=== PATIENT | male | born 1945 | race Caucasian/White ===

== ENCOUNTER → 2017-06-22 | Outpatient (CLI) | payer BC, OTHER ==
[~2017-06-22] MED LIST: CENTRUM SILVER1 EAC2 PO; FOLIC ACID0.8 MG PO; MAGNESIUM400 M1 PO; MOBIC15 MG PO; SIMVASTATIN40 MG PO; TERAZOSIN HCL5 MG PO; ULTRAM 50MG TAB50 MG PO; VITAMIN D3400 UNIT PO; VITAMIN E1000 UNI2 PO; VITAMINC500 PO; ZINC50 M1 PO
--- NOTE | 2017-07-11 08:16 | PAINCON ---
[address] [address] PAIN MANAGEMENT CONSULTATION Name: MYKE WHIPPLE [facility] [id number] Admission: 06/22/17 Attend Phys: Stepan Siegel MD Discharge: Date of : 43 Report #: [id number] THIS REPORT FOR: //name// CC: Stepan Correa MD DATE OF SERVICE: 06/22/2017 CHIEF COMPLAINT: Pain down the right leg. HISTORY OF PRESENT ILLNESS: The patient is a 72-year-old gentleman, who has been referred to the Pain Clinic for evaluation. He has been having pain in the back for a number of years. Pain is worse on the right side as compared to the left. He described it as pain involving the lower buttocks with numbness, tingling, and an electric shock-like sensation, which he has been experiencing. Occasionally, he has some numbness in the right leg down to the level of knee. He has tried physical therapy, but he does not feel that this has been significantly helpful. Chiropractic was tried, but no long-term benefit. He rates his pain as a 3/10 at this juncture. He has been using naproxen to help control the pain. Notes that walking, activities of daily living as well as leaning back to look upward can be problematic. Over the past 3 months, things have gotten progressively more problematic especially when he is walking, worse is the pain when he lifts his hands over his head. Notes that rest sometimes improves the pain. He describes it as significantly problematic in the "small of his back." He described it as continuous, constant and throbbing, often times to about a 5/10. ALLERGIES: No known drug allergies. CURRENT MEDICATIONS: Ascorbic acid 500 mg daily, vitamin D3, folic acid 0.8 mg, magnesium oxide 400 mg, Centrum Silver Ultra for men, terazosin 5 mg at bedtime, vitamin E mixed with zinc 50 mg. FAMILY HISTORY: Mother at age 93, type 2 diabetes. Father at 93, colon cancer. 2 sisters and 2 sons are healthy. Family history of colonic polyps. PAST MEDICAL HISTORY: Benign prostatic hypertrophy, gastroesophageal reflux, anxiety, abdominal aortic aneurysm, dyslipidemia, bilateral carpal tunnel, hypertension, arthralgia, bilateral carpal tunnel syndrome. PAST SURGICAL HISTORY: Sinus surgery in 1975, ingrown toenail in 1968, colonoscopy, EGD, eye surgery for glaucoma in 2016. 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 [address] PAIN MANAGEMENT CONSULTATION Name: TOMAS WHIPPLEE Daisy Room: [facility]#: [id number] Admission: 06/22/17 Attend Phys: Stepan Siegel MD Discharge: Date of : 43 Report #: [id number] working at this juncture. MARITAL STATUS: He is . REVIEW OF SYSTEMS: Questionnaire 14-point review indicates generally good health, wears glasses, back pain, numbness and tingling sensation down the lower extremities. LABORATORY AND IMAGING DATA: MRI of the lumbar spine dated 09/09/2001 revealed: 1. L2-L3 levels reveals bulging, desiccated disk, accompanied by annular rent. Although the bulging disk only mildly effaces the ventral thecal sac, the annular rent might contribute to local low back pain. 2. L3-L4 level also demonstrates a bulging desiccation of the disk with an annular rent. In addition, a left foraminal small herniated nucleus pulposus is seen resulting in moderate leftward L3 foraminal encroachment. Mild facet arthropathy contributes to the foraminal encroachment. 3. L4-L5 level reveals a bulging desiccated disk, accompanied by a small left foraminal disk protrusion, chronic in character, with associated endplate spurring. Facet arthropathy at L4-L5 contributes to moderate foraminal encroachment. 4. L5-S1 level reveals a bulging, desiccated disks. Slight anterolisthesis is seen, grade 1, in the supine position. Facet arthropathy contributes to moderate L5 foraminal encroachment. 5. Height of vertebral body is maintained. Normal pathology marrow infiltration. No paraspinous soft tissue mass. The upper abdominal aorta is mildly ectatic. PAIN IMPACT SCORE: 1. The patient has some pain and discomfort consistent with arthritic changes in the low back area. 2. Height 5 feet 7 inches, weight 180 pounds, BMI is 28. 3. Vital signs: Blood pressure 140/93, heart rate 57, respiratory rate 16, room air saturation 97%, temperature 97.9. 4. The patient rates his pain at a 3/10. 5. The patient has not fallen in the last 3 months. 6. Hypertension: The patient is being treated for hypertension. 7. Blood thinner: The patient is not on a blood thinning agent. 8. Opioids for greater than 6 weeks: The patient has not been on opioid therapy for greater than 6 weeks. 7. Risk assessment tool. 8. Functional assessment tool. 9. Recreational drug use: The patient denies use of recreational drugs 10. Tobacco use: The patient has stopped use of tobacco on 2 occasions. 11. Alcohol frequency: The patient does not drink alcoholic beverages on a regular basis. [address] [address] PAIN MANAGEMENT CONSULTATION Name: TOMAS WHIPPLEE Daisy Room: [facility]#: [id number] Admission: 06/22/17 Attend Phys: Stepan Siegel MD Discharge: Date of : 43 Report #: [id number] PHYSICAL EXAMINATION: GENERAL: The patient is a well-developed white male, appears his stated age. He is alert and oriented x 3. Affect is appropriate. Speech is fluent. HEENT: Normocephalic, atraumatic. Extraocular eye muscles intact. Sclerae is nonicteric. Hearing is within normal limits. Mucous membranes are moist. NECK: Without adenopathy, JVD or bruits. HEART: Regular rate. ABDOMEN: Nontender. EXTREMITIES: Upper extremity muscle strength is judged to be 5/5 for the major muscle groups. +1 biceps tendon reflexes bilaterally. Respiratory Technician strength is 5/5. MUSCULOSKELETAL: Without significant scoliosis, kyphosis or lordosis. IMPRESSION: 1. Lumbar radiculopathy involving the low back area with numbness and tingling radiating down into the right buttocks with some electrical sensation and sensory changes involving the right leg to the level of the knee. 2. History of prostatic hypertrophy. 3. Gastroesophageal reflux. 4. Anxiety. 5. Abdominal aortic aneurysm. 6. Dyslipidemia. 7. Bilateral carpal tunnel. 8. Hypertension. 9. Arthralgia. RECOMMENDATIONS: We discussed treatment options with the patient. He is having pain and discomfort in the lower portion of his back. He is experiencing pain which is radiating down into the posterior portion of his right leg with numbness, tingling and weakness involving the affected area. We have discussed the possibility of an epidural steroid injection. Risks and benefits of an epidural steroid injection were discussed. Possible complications of the procedure were reviewed. A model was used to indicate the area of probable pathology. The patient states that he understands. We will consider an epidural steroid injection. <ELECTRONICALLY SIGNED> By: Stepan Siegel MD 07/11/17 0816 [id number]. Steven Siegel MD /nt
== END ==
LOC: M.PC 02:25
DX: I10 Essential (primary) hypertension (principal); E78.5 Hyperlipidemia, unspecified; M54.16 Radiculopathy, lumbar region; K21.9 Gastro-esophageal reflux disease without esophagitis; F41.9 Anxiety disorder, unspecified; I71.4 Abdominal aortic aneurysm, without rupture; M79.651 Pain in right thigh

== ENCOUNTER → 2017-06-29 | Outpatient (CLI) | payer BC, OTHER ==
--- NOTE | 2017-07-11 08:16 | PAINCON ---
[address] [address] PAIN MANAGEMENT CONSULTATION Name: MYKE WHIPPLE [facility] [id number] Admission: 06/29/17 Attend Phys: Stepan Siegel MD Discharge: Date of : 41 Report #: [id number] THIS REPORT FOR: //name// CC: Stepan Correa MD DATE OF SERVICE: 06/29/2017 FOLLOWUP COMPLAINT: Here for an epidural steroid injection because of pain in the right leg. FOLLOWUP HISTORY: The patient is a 72-year-old gentleman who has been seen in the pain clinic because of pain and discomfort. He has had some pain in his back for a number of years. The pain has gotten worse and radiated down to the right side of his leg and worsened on the left. He described his pain involving the lower buttocks with numbness, tingling, and electrical shock-like sensation, which he has been experiencing. He occasionally has some numbness on the right leg down to the level of knee. He has tried physical therapy, does not feel that had provided any terminal operations supervisor benefit. He has tried chiropractic treatment with no terminal operations supervisor benefit. He has used nonsteroidal anti-inflammatory medication such as Naprosyn. He notes that activities such as walking, leaning forward, and looking upward can be problematic. Over the last 3 months things have gotten significantly worse and more problem and progressively more uncomfortable with activities. Notes that sometimes pain improves when he rests. ALLERGIES: No known drug allergies. CURRENT MEDICATIONS: Ascorbic acid 500 mg daily, vitamin D3, folic acid 0.8 mg, magnesium oxide 400 mg, Centrum Silver Ultra for Men, prazosin 5 mg at bedtime, vitamin E mixed with zinc 50 mg. PAIN CLINIC IMPACT SCORE: 1. The patient has some pain and discomfort consistent with arthritic changes in his low back area. 2. Height 5 feet 5 inches, weight 180 pounds, BMI is 28. 3. Vital signs: Blood pressure 129/68, heart rate 60, respiratory rate 16, room air saturation 97%, temperature 97.8. 4. Pain score. The patient rates his pain as 2/10 at this juncture. 5. The patient has not fallen in the last 3 months. 6. Hypertension. The patient is being treated for hypertension. 7. Blood thinner. The patient is not on a blood thinning agent. 8. Opioid greater than 6-week. The patient has not been on opioid script for greater than 6 weeks. 9. [place] [address] PAIN MANAGEMENT CONSULTATION Name: TOMAS WHIPPLEE Daisy Room: [facility]#: [id number] Admission: 06/29/17 Attend Phys: Stepan Siegel MD Discharge: Date of : 43 Report #: [id number] 10. Functional assessment tool. 11. Recreational drug use. The patient denies any use of recreational drugs. 12. Tobacco: The patient has stopped use of tobacco on 2 occasions. 13. Alcohol frequency. The patient denies drinking alcoholic beverages on a regular basis. PHYSICAL EXAMINATION: GENERAL: The patient is a well-developed white male. He appears his stated age. He is alert and oriented x 3. AFFECT: His affect is appropriate. SPEECH: Fluent. HEENT: Normocephalic, atraumatic. Extraocular eye muscles intact. Sclerae is nonicteric Hearing is within normal limits. Mucous membranes are moist. NECK: Without adenopathy, JVD, or bruits. Good range of motion. HEART: Regular rate, normal S1, S2. ABDOMEN: Nontender. LUNGS: Clear to auscultation without rhonchi or rales. EXTREMITY: Upper extremity muscle strength is judged to be 5/5 for the major muscle groups with +1 biceps tendon, reactivity bilaterally. Hall Supervisor strength 5+/5. MUSCULOSKELETAL: Without significant scoliosis, kyphosis, or lordosis. Lumbar area involving the low back area with some numbness and tingling radiating down the right buttocks with some sensation of electrical shock. Positive straight leg raise. IMPRESSION: 1. Lumbar radiculopathy involving low back area with numbness and tingling radiating down to the right buttocks. 2. History of prostatic hypertrophy. 3. Gastroesophageal reflux. 4. Anxiety. 5. Aortic aneurysm history. 6. Dyslipidemia. 7. Bilateral carpal tunnel syndrome. 8. Hypertension. 9. Arthralgias. RECOMMENDATIONS: We discussed treatment options with the patient. Risks and benefits of an epidural steroid injection were again reviewed. Possible complication of the procedure were discussed. The patient elects to proceed. PROCEDURE NOTE: The patient was assisted in moving on to the examination table. He was placed in the prone position. His back was sterilely prepped with a Betadine solution and allowed to dry the L4-L5/L5-S1 area. Fluoroscopy using the anterior, posterior as well as the lateral approach was used to visualize the appropriate target area. This area was then infiltrated with 0.25% [address] [address] PAIN MANAGEMENT CONSULTATION Name: MYKE WHIPPLE Room: [facility] Edward#: [id number] Admission: 06/29/17 Attend Phys: Stepan Siegel MD Discharge: Date of : 43 Report #: [id number] bupivacaine. A 17-gauge Tuohy with loss of resistance technique was used to gain access to the epidural space. There was no CSF, heme or paresthesia. A total of 40 mg triamcinolone and 80 mg Depo-Medrol was injected. The patient tolerated the procedure well. There were no complications. He remained in the pain clinic for an appropriate amount of time. He will follow up in the future as needed. We would like to thank you for letting us participate in his care. We hope he continues to improve. <ELECTRONICALLY SIGNED> By: Stepan Siegel MD 07/11/17 0816 1745 [address]. Steven Siegel MD /ADÁN
== END | disposition home or self-care (01) ==
LOC: M.PC 01:28
DX: M54.16 Radiculopathy, lumbar region (principal); G89.29 Other chronic pain; I10 Essential (primary) hypertension; M19.90 Unspecified osteoarthritis, unspecified site; E78.5 Hyperlipidemia, unspecified; F41.9 Anxiety disorder, unspecified; K21.9 Gastro-esophageal reflux disease without esophagitis; Z86.79 Personal history of other diseases of the circulatory system; Z87.438 Personal history of other diseases of male genital organs

== ENCOUNTER → 2017-08-03 | Outpatient (CLI) | payer BC, OTHER ==
--- NOTE | 2017-08-30 13:42 | PAINCON ---
[address] [address] PAIN MANAGEMENT CONSULTATION Name: MYKE WHIPPLE Room: [facility]#: [id number] Admission: 08/03/17 Attend Phys: Stepan Siegel MD Discharge: Date of : 43 Report #: [id number] THIS REPORT FOR: //name// CC: Stepan Correa MD DATE OF SERVICE: 08/03/2017 FOLLOWUP COMPLAINT: The pain is better overall, but still having some numbness down the right leg and a hitch in the right hip. Here for another injection. FOLLOWUP HISTORY: The patient is a 72-year-old gentleman who has been seen in the pain clinic because of pain and discomfort. The pain involves his low back. It has been problematic for a number of years. He has noticed that after the last epidural steroid injection, he has noted some improvement. The pain involves his lower back and the buttocks area. Pain radiates down to his leg with a tingling sensation and an electrical shock-like sensation. He notes also some numbness in his right leg to the level of his knee. As you recall, he has tried physical therapy. Does not feel that it had provided any long-term benefit. He has also undergone chiropractic treatment that was helpful while he was undergoing it, but still had residual pain and discomfort. Nonsteroidal anti-inflammatory medications such as Naprosyn has been used. He notes that activities such as walking, leaning forward, bending and looking upward can be problematic. He notes that his pain has gotten worse over the last 3 months. It improved after the last epidural steroid injection. Therefore, he has returned to the pain clinic with hopes of additional benefit from another injection. ALLERGIES: No known drug allergies. CURRENT MEDICATIONS: Ascorbic acid 500 mg, vitamin D3, folic acid is 0.8 mg, magnesium oxide 400 mg, Centrum Silver Ultra for Men, prazosin 5 mg at bedtime, vitamin E mixed with zinc 50 mg. PAIN CLINIC ASSESSMENT: 1. The patient has some pain and discomfort with arthritic changes in his low back area. 2. Height 5 feet 5 inches, weight 176 pounds, BMI is 27. 3. Vital signs: Blood pressure 129/75, heart rate 66, respiratory rate 16, room air saturation 97%, temperature 98.0. 4. Pain score: The patient rates his pain score as a 2 at this juncture. 5. The patient has not fallen in the last 3 months. 6. Hypertension: The patient is being treated for hypertension. 7. Blood thinner: The patient is not on a blood thinning agent. 8. Opioid greater than 6 weeks. The patient is [place] [address] PAIN MANAGEMENT CONSULTATION Name: MYKE WHIPPLE Room: [facility]#: [id number] Admission: 08/03/17 Attend Phys: Stepan Siegel MD Discharge: Date of : 43 Report #: [id number] use. 9. Risk assessment tool. 10. Functional assessment tool. 11. Recreational drug use: The patient denies use of recreational drugs. 12. Tobacco: The patient stopped using tobacco on 2 occasions. 13. Alcohol frequency: The patient denies use of alcoholic beverages on a regular basis. PHYSICAL EXAMINATION: GENERAL: The patient is a well-developed white male. He appears his stated age. He is alert and oriented x 3. Affect, the patient's affect is appropriate. Speech is fluent. HEENT: Normocephalic, atraumatic. Extraocular eye muscles intact. Sclerae is nonicteric. Hearing is within normal limits. Mucous membrane is moist. NECK: Without adenopathy, JVD or bruits. Good range of motion. HEART: Regular rate, normal S1, S2. LUNGS: Clear to auscultation without rhonchi or rales. ABDOMEN: Nontender. EXTREMITIES: Upper extremities musculature judged to be 5/5 for the major muscle groups with a +1 biceps tendon reactivity bilaterally. Brake Machine Operator strength 5/5. Lower extremity musculature 5/5 with pain radiating down the low back area with some discomfort in the L5-S1 and paraspinous area and the patient with pain in the right buttocks with some sensation that he describes as electrical shocks. Positive straight leg raise on the right. IMPRESSION: 1. Lumbar radiculopathy involving the right leg with pain, numbness and tingling down to the buttocks area. 2. History of prostatic hypertrophy. 3. Gastroesophageal reflux. 4. Anxiety. 5. Aortic aneurysm history. 6. Dyslipidemia. 7. Bilateral carpal tunnel syndrome. 8. Hypertension. 9. Arthralgias. RECOMMENDATIONS: We discussed treatment options with the patient. He underwent an epidural steroid injection in the L5-S1 area at the last visit. He returns today indicating that he has noted some benefit. At this juncture, he would like to proceed with another injection in the low back area in the L5 distribution given that he has noted benefit from the last. He had no complications. PROCEDURE NOTE: The patient was taken to the room. He was then assisted in getting on the examination table. His back was sterilely prepped with a [facility] [address] [place] [address] PAIN MANAGEMENT CONSULTATION Name: MYKE WHIPPLE Room: [facility]#: [id number] Admission: 08/03/17 Attend Phys: Stepan Siegel MD Discharge: Date of : 43 Report #: [id number] Betadine solution. Fluoroscopy using anterior, posterior as well as lateral viewing was used to assist in needle placement. A right lateral posterior approach at the L5-S1 area was conducted. After appropriate placement, a total of 80 mg Depo-Medrol, 40 mg triamcinolone and 2 mL of 0.25% bupivacaine was injected. The patient tolerated the procedure well. There were no complications. He was taken to the recovery room. A Band-Aid had been placed. There was no bleeding. He remained appropriate amount of time. He was given 16 seconds of fluoroscopy time. He will follow up in the future as needed. We would like to thank you for letting us participate in his care. We hope he continues to improve. <ELECTRONICALLY SIGNED> By: Stepan Siegel MD 08/30/17 1342 0939 [id number]. Steven Siegel MD /nt
== END | disposition home or self-care (01) ==
LOC: M.PC 04:03
DX: M54.16 Radiculopathy, lumbar region (principal); G89.29 Other chronic pain; I10 Essential (primary) hypertension; E78.5 Hyperlipidemia, unspecified; F41.9 Anxiety disorder, unspecified; K21.9 Gastro-esophageal reflux disease without esophagitis; Z87.438 Personal history of other diseases of male genital organs; Z86.79 Personal history of other diseases of the circulatory system; Z79.899 Other long term (current) drug therapy

== ENCOUNTER → 2017-09-07 | Outpatient (CLI) | payer BC, OTHER ==
--- NOTE | 2017-09-14 15:18 | PAINCON ---
[address] [address] PAIN MANAGEMENT CONSULTATION Name: MYKE WHIPPLE Room: [facility]#: [id number] Admission: 09/07/17 Attend Phys: Stepan Siegel MD Discharge: Date of : 41 Report #: [id number] THIS REPORT FOR: //name// CC: Stepan Correa DATE OF SERVICE: 09/07/2017 FOLLOWUP COMPLAINT: "Still have some low back pain. There is still numbness down into my foot on the right side." FOLLOWUP HISTORY: The patient is a 72-year-old gentleman, who has been seen in the pain clinic because of pain and discomfort, which has been radiating down into his right foot. He has undergone epidural steroid injections on 2 previous occasions. Overall, he has gained some benefit from the procedure, but continues to be concerned that his pain still is problematic. States that he continues to work part-time. He wakes up in the afternoon and notes there is some increased discomfort at about 2 p.m. At 7:30 p.m., he goes to work. Notes that prolonged walking is problematic. He finds that it is a "chore to get out of bed" because of the discomfort. Pain can be more problematic with sitting. He has been using Naprosyn. He has only taken it on occasion. He rates his pain as a 3-4/10. As you may recall, he has undergone chiropractic treatment. He is not taking any other medications. He states that he does not like to take medications. ALLERGIES: No known drug allergies. CURRENT MEDICATIONS: Ascorbic acid 500 mg, vitamin D3, folic acid 0.8 mg, magnesium oxide 400 mg, Centrum Ultra for Men, prazosin 5 mg at bedtime, vitamin E mixed with zinc 50 mg. PAIN CLINIC ASSESSMENT: 1. The patient does have some arthritic changes in the lower portion of his back. 2. Height 5 feet 5 inches, weight 176 pounds, BMI is 27. 3. VITAL SIGNS: Blood pressure 133/75, heart rate 55, respiratory rate 16, room air saturation 95%, temperature 98.3. 4. Pain intensity -06/27. 5. Fall risk. The patient has not fallen in the last 3 months. 6. Blood thinner. The patient is not on a blood thinning agent. 7. History of hypertension. The patient is not being treated for hypertension. 8. Opioid greater than 6 weeks. The patient is not on an opioid regimen. 9. Risk assessment tool, low for opioid use. 10. Functional assessment tool. 11. Recreational drug use. The patient denies use of recreational drugs. 12. Tobacco: The patient stopped smoking tobacco on 2 [place]. [place] [address] PAIN MANAGEMENT CONSULTATION Name: MYKE WHIPPLE Room: [facility]#: [id number] Admission: 09/07/17 Attend Phys: Stepan Siegel MD Discharge: Date of : 41 Report #: [id number] 13. Alcohol frequency. The patient denies use of alcohol on a regular basis. PHYSICAL EXAMINATION: GENERAL: The patient is a well-developed white male. He appears his stated age. He is alert and oriented x 3. His affect is appropriate. Speech is fluent. HEENT: Normocephalic, atraumatic. Extraocular eye muscles intact. The patient wears glasses. Sclerae nonicteric. Hearing within normal limits. Mucous membrane is moist. NECK: Without adenopathy, JVD or bruits. Good range of motion. HEART: Regular rate, normal S1, S2. LUNGS: Clear to auscultation without rhonchi or rales. ABDOMEN: Nontender. EXTREMITIES: Upper musculoskeletal strength judged to be 5/5 for the major muscle groups. Lower extremity muscle 5/5. The patient does walk with a slightly antalgic gait favoring his right leg. Complains of pain and discomfort, which is radiating down into the L5-S1 distribution on the right. IMPRESSION: 1. Lumbar radiculopathy involving the right leg in the L5-S1 distribution with numbness, tingling down from the buttocks area. 2. History of prostatic hypertrophy. 3. Gastroesophageal reflux. 4. Anxiety. 5. Aortic aneurysm history. 6. Dyslipidemia. 7. Bilateral carpal tunnel syndrome. 8. Hypertension. 9. Arthralgias. RECOMMENDATIONS: We discussed the treatment option with the patient. Risks and benefits of an epidural steroid injection were again reviewed. We explained to the patient that if his pain should continue after the epidural steroid injections and remained problematic, he should consult his primary physician. I think at that point, it would be reasonable for him to interview and be seen by a surgeon. We explained to him that he does not have to have surgery at this juncture, but it would probably be to his benefit, if he had already touch base with one. Should he have an emergency situation, it would be much better if he knew surgeon and had spoken with him prior to a flareup and need for surgery. He agreed. He would like to proceed today with an epidural steroid injection. Risks and benefits of an epidural steroid injection were again reviewed. Possible complications of the procedure were discussed. They include, but are not limited to infection, increased muscle soreness, headache, bleeding, worsening of pain, no improvement in pain, spinal headache. The patient [place] [address] PAIN MANAGEMENT CONSULTATION Name: TOMAS WHIPPLEE Daisy Room: [facility]#: [id number] Admission: 09/07/17 Attend Phys: Stepan Siegel MD Discharge: Date of : 41 Report #: [id number] PROCEDURE NOTE: The patient was taken to the procedure area. He was then assisted in getting on the fluoroscopy table. He was placed in the prone position. His back was sterilely prepped with a Betadine solution. Fluoroscopy using anterior, posterior as well as lateral viewing were used to identify the appropriate placement of the needle. His back was infiltrated in the right ____ area of the L5-S1. A 0.25% bupivacaine was infiltrated. The patient elects to proceed. A total of 80 mg Depo-Medrol, 40 mg triamcinolone and 2 mL of 0.25% bupivacaine was injected. The patient tolerated the procedure well. A Band-Aid was placed. There was no bleeding. He was then escorted to the Recovery Room, where he remained for an appropriate amount of time. He will follow up in the future as needed. We would like to thank you for letting us participate in his care. We did discuss the possibility of tramadol or another pain medication in the future should he choose. <ELECTRONICALLY SIGNED> By: Stepan Siegel MD 09/14/17 1518 [id number]. Steven Siegel MD /isabella
== END | disposition home or self-care (01) ==
LOC: M.PC 03:58
DX: M54.16 Radiculopathy, lumbar region (principal); G89.29 Other chronic pain; I10 Essential (primary) hypertension; K21.9 Gastro-esophageal reflux disease without esophagitis; F41.9 Anxiety disorder, unspecified; E78.5 Hyperlipidemia, unspecified; M25.50 Pain in unspecified joint; Z86.79 Personal history of other diseases of the circulatory system; Z87.438 Personal history of other diseases of male genital organs; Z79.899 Other long term (current) drug therapy; Z98.890 Other specified postprocedural states